=== PATIENT | female | born 1980 ===

== ENCOUNTER 2020-05-06 08:05 | Outpatient (CLI) | payer BC ==
--- NOTE | 2020-05-06 10:15 | MMO ---
Bilateral MAMMO Bilat Screen [facility]. CLINICAL HISTORY: Patient is 39 years old and is seen for screening. The patient has no family history of breast cancer. The patient has no personal history of cancer. VIEWS: The views performed were: bilateral craniocaudal with tomosynthesis; bilateral mediolateral oblique with tomosynthesis; and left mediolateral oblique. This study has been interpreted with the assistance of computer-aided detection. MAMMOGRAM FINDINGS: The breasts are heterogeneously dense, which could obscure a lesion on mammography. There is a nodule with circumscribed margins seen in the upper-outer region of the right breast. In the left breast, there are no suspicious masses, calcifications or areas of architectural distortion. IMPRESSION: NODULE IN THE RIGHT BREAST REQUIRES ADDITIONAL EVALUATION. AN ULTRASOUND EXAM IS RECOMMENDED. THE RESULTS OF THIS EXAM WERE SENT TO THE PATIENT. ACR BI-RADS Category 0 - Incomplete: Need additional imaging evaluation. [facility] will notify the patient of the need for additional imaging services. MAMMOGRAPHY NOTE: 1. A negative mammogram report should not delay a biopsy if a dominant of clinically suspicious mass is present. 2. Approximately 10% to 15% of breast cancers are not detected by mammography. 3. Adenosis and dense breasts may obscure an underlying neoplasm. Reported by: HUI ROMAN MD Electonically Signed: [id number]
== END 2020-05-06 08:06 | disposition home or self-care (01) ==
LOC: BICMAMMO 08:05
PROVIDERS: ATTEND Family Medicine
DX: Z12.31 Encounter for screening mammogram for malignant neoplasm of breast (principal); N63.10 Unspecified lump in the right breast, unspecified quadrant
CPT/HCPCS: 77063; 77067

== ENCOUNTER 2020-05-12 07:49 | Outpatient (CLI) | payer BC ==
--- NOTE | 2020-05-12 08:45 | ULT ---
RIGHT BREAST ULTRASOUND LIMITD: HISTORY: Nodular area on mammogram in the 10 o'clock region of the right breast to be evaluated with ultrasoun d. FINDINGS: The 10 o'clock region of the right breast is evaluated. There is a 0.3 x 0.5 cm thin-walled cyst. V alicia close to this cyst is a lymph node which measures 0.4 x 0.7 cm in size. I feel that these ultras ound findings correlate with the mammographic findings. IMPRESSION: Small benign cyst and adjacent lymph node at the 10 o'clock region of the right breast 4 cm from the nipple. Correlate to mammographic area of concern. BIRADS category 2 - benign findings. Continued routine screening.
== END 2020-05-12 07:50 | disposition home or self-care (01) ==
LOC: BICULT 07:49
PROVIDERS: ATTEND Radiology Diagnostic Radiology
DX: N63.10 Unspecified lump in the right breast, unspecified quadrant (principal); N60.01 Solitary cyst of right breast